=== PATIENT | female | born 1990 | race Two or more races ===

== ENCOUNTER 2024-07-22 12:46 | Emergency (ER) | payer MEDICAID, SELFPAY ==
[2024-07-22 12:48] VITALS: BMI 33.2
[2024-07-22 13:05] VITALS: BP 138/91; PULSE 105; RESP 18; TEMP 37.1; O2SAT 99
--- NOTE | 2024-07-22 13:27 | XR_ITS ---
Examination: Lumbar spine 3 views Technique one AP lateral coned lateral lower lumbar spine 3 views Date and time: July 22, 2024 1430 hours INDICATIONS: Patient fell pop in the lower back today followed by pain FINDINGS: Adequate alignment lumbar vertebral bodies No lumbar fracture Advanced disc narrowing L5-S1 No spondylolisthesis IMPRESSION: No lumbar fracture Advanced degenerative disc disease L5-S1
[2024-07-22] MEDS: CYCLObenzaPRINE 5 MG TABLET PO (13:33)
[2024-07-22] MEDS: HYDROcodone/APAP 5/325 TABLET 1 TAB PO (13:33)
[2024-07-22 13:44] LABS: Collection Type, Urine Clean Catch
--- NOTE | 2024-07-22 13:48 | PD.EDBACK ---
ED Back Injury Pain RME/HPI General Chief Complaint: Back Pain/Injury Stated Complaint: BACK PAIN 11/19; FELT POP IN LOWER BACK Time Seen by Provider: 07/22/24 12:53 Arrival date/time: 07/22/24 12:46 Limitations: no limitations RME / HPI RME / HPI Narrative: 33-year-old female with no reported past medical history presents for evaluation of low back pain x1 day. She describes it as sharp with radiation to her left gluteal region. She reports that she initially injured her left gluteal muscles while at the gym x 6 days ago and has been abstaining from exercise since that time. She states that today she was bending over to move a patient at work when she felt a pop in her low back. She reports intermittent tingling down her bilateral posterior thighs. She denies numbness, bladder and bowel incontinence, dysuria, hamturia, fever, rash, and weakness. She states she is unable to ambulate secondary to pain. Patient reports prior injury to her left pelvic region when she was a teenager. Patient reports that she has been taking naproxen and antispasmodics daily with some improvement in symptoms. 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 Associated symptoms: denies other symptoms Related Data Previous Rx's ?Medication ?Instructions ?Recorded cyclobenzaprine 10 mg tablet 10 mg PO TID PRN muscle spasm #30 07/22/24 tabs Allergies Allergy/AdvReac Type Severity Reaction Status Date / Time coconut Allergy Mild Dry Mucus Verified 07/22/24 12:51 Membranes Review of Systems Constitutional Constitutional: Denies body ache(s), Denies chills, Denies fever(s), Denies headache(s), Denies lethargy, Denies night sweats and Denies weakness Eyes Eyes: Denies blurry vision and Denies change in vision ENT Ears, Nose, Mouth, and Throat: Denies disequilibrium, Denies dizziness, Denies otalgia, Denies headache(s) and Denies neck pain Cardiovascular Cardiovascular: Denies chest pain, Denies irregular heart rhythm and Denies leg edema Respiratory Respiratory: Denies cough and Denies wheezing Gastrointestinal Gastrointestinal: Denies abdominal pain, Denies change in stool character, Denies fecal incontinence, Denies loose stools, Denies nausea and Denies vomiting Genitourinary Genitourinary: Denies dysuria, Denies flank pain, Denies hematuria and Denies urinary incontinence Musculoskeletal Musculoskeletal: Reports abnormal gait, Reports back pain, Denies joint swelling, Reports muscle cramps, Denies myalgias, Denies neck pain, Denies numbness, Denies radiating pain into limb, Denies stiffness and Denies tingling Integumentary/Breasts Skin/Breast: Denies new lesions, Denies rash and Denies wounds Neurologic Neurologic: Reports abnormal gait, Denies disequilibrium, Denies dizziness, Denies localized weakness, Denies headache(s), Denies numbness, Denies paresthesias, Denies radicular pain, Denies sensory deficit, Denies tingling and Denies weakness Allergic/Immunologic Allergic/Immunologic: Denies wheezing Past Medical History Social History SMOKING STATUS: Current some day smoker ED Exam General Limitations: Present no limitations General appearance: Present alert and other (Crying on examination, brought into room in wheelchair.) Head Head exam: Present atraumatic and normocephalic Eye Eye exam: Present normal appearance, PERRL and EOMI ENT ENT exam: Present normal exam, normal oropharynx, mucous membranes moist and TM's normal bilaterally Neck Neck exam: Present normal inspection and full ROM; Absent tenderness Chest Chest inspection: Present normal inspection and symmetric chest wall rise; Absent tenderness Respiratory Respiratory exam: Present normal lung sounds bilaterally; Absent respiratory distress or wheezes Cardiovascular Cardiovascular exam: Present tachycardia and +S1 Abdominal Exam Abdominal exam: Present soft; Absent distention or tenderness Rectal Exam Rectal exam: Present deferred Extremities Exam Extremities exam: Present full ROM and normal capillary refill; Absent tenderness or calf tenderness Back Exam Back exam: Present tenderness, muscle spasm (Mild muscle spasm palpated on left upper gluteal region.), paraspinal tenderness (Diffuse paraspinal lumbar tenderness to palpation.), sciatic notch tenderness (R), sciatic notch tenderness (L) and straight leg raise (L); Absent vertebral tenderness or straight leg raise (R) Neurological Exam Neurological exam: Present alert, oriented X3 and normal gait Expanded Neurological Exam Cerebellar function: Present normal gait and Romberg normal Motor strength - LUE: 5/5 Motor strength - RUE: 5/5 Motor strength - LLE: 5/5 Motor strength - RLE: 5/5 Psychiatric Psychiatric exam: Present anxious Skin Skin exam: Present warm, dry and normal color Course Quality Measures none Orders Category Date Time Status XR lumbar spine 2-3V Stat Exams 07/22/24 13:27 Completed HCG Qualitative,Urine Stat Lab 07/22/24 13:10 Completed UA, C/S IF [Urinalysis, C/S if Indicated] Stat Lab 07/22/24 13:10 Completed CYCLObenzaPRINE [Flexeril] Med 07/22/24 13:27 Discontinued 5 mg PO X1 ONE HYDROcodone*/APAP 5/325 [[place] 5/325] Med 07/22/24 13:27 Discontinued 1 tab PO X1 ONE Vital Signs Vital signs: Vital Signs Temperature 98.7 F 07/22/24 13:05 Pulse Rate 105 H 07/22/24 13:05 Respiratory Rate 18 07/22/24 13:05 Blood Pressure 138/91 H 07/22/24 13:05 Pulse Oximetry (%) 99 07/22/24 13:05 Oxygen Delivery Method Room Air 07/22/24 13:05 Pulse ox 99% on room air, within normal limits. Back Pain / Injury MDM Narrative MDM Narrative:: 33-year-old female presented for evaluation of back pain following an injury at work several days ago. 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 Vital signs significant for tachycardia, likely related to patient pain. Patient visibly uncomfortable on exam but no evidence of saddle paresthesia and clinical picture does not fit for cauda equina. MRI deferred at this time. X-ray showed moderate disc degeneration, likely chronic in nature. Less concern for pyelonephritis or nephrolithiasis given normal UA. Patient symptoms were improved in the department following [place] and antispasmodics. More likely muscle spasm. Ultimately patient was discharged home with plan to follow-up with primary care for possible outpatient MRI and physical therapy referral. Return precautions provided. Patient stable at time of discharge. Patient data External records reviewed:: [facility] previous records Clinical information provided by:: patient Social determinants that could affect healthcare access:: none Patient has the following chronic illnesses:: None reported. How is presenting disease/condition affected by chronic disease/condition?: no chronic disease Evaluation data The following diagnostics were reviewed and interpreted by me:: radiology exam(s) Lab and/or radiology exams considered but not ordered:: Considered not ordered. Interpretation Summary: Lumbar x-ray without acute fracture. IMPRESSION: No lumbar fracture Advanced degenerative disc disease L5-S1 hCG negative. UA without sign of infection or hematuria. Medications / Prescriptions Medications or Prescriptions considered but not ordered:: Rx given. Medication administrations:: Medication Administration History Discontinued Medications Hydrocodone Bitart/Acetaminophen (Hydrocodone/Apap 5/325 Tablet) 1 tab PO X1 ONE Stop: 07/22/24 13:28 Last Admin: 07/22/24 13:33 Dose: 1 tab Documented By: LYNETTE Cyclobenzaprine HCl (Cyclobenzaprine 5 Mg Tablet) 5 mg PO X1 ONE Stop: 07/22/24 13:28 Last Admin: 07/22/24 13:33 Dose: 5 mg Documented By: LYNETTE Rx given. Consultations Consultation(s) initiated? (list below): No Diagnosis Differential diagnosis back pain/injury: lumbar radiculopathy, sciatica, strain of lumbar region, renal colic, thoracic back pain and discitis Most likely diagnosis given after review of the tests above:: Strain of lumbar region. Admission Indicated Admission indicated?: not indicated Admission Request Was there a request for admission?: No Disposition Plan Disposition Plan: Discharge Discharge Attestation Discharge Attestation: The patient and all family members were given an opportunity to ask questions and understood the discharge instructions. Discharge instructions specifically effects, indications for sooner follow up or return to the emergency department, and the expected course of current diagnosis. Patient condition: Stable Discharge Plan Plan Patient Disposition: HOME (Self Care) Discharge Disposition comment: stable Prescriptions/Referrals Prescriptions/Med Rec: New cyclobenzaprine 10 mg tablet 10 mg PO TID PRN (Reason: muscle spasm) Qty: 30 0RF Referrals: No Primary/Family,Physician [Primary Care Provider] - In 1 week Problem List Clinical Impression: Strain of lumbar region, Degenerative disc disease at L5-S1 level Impression comment: Continue to rest and use heating pad for up to 15 minutes at a time up to 4 times daily on low back. Take muscle relaxer as needed every 8 hours. He may take Tylenol or ibuprofen as needed for low back pain every 6 hours. Follow-up with primary care within the next 3 to 4 days for further evaluation and possible physical therapy referral. Return to the ED if your symptoms worsen or change Patient/Caregiver Discharge Instructions Education Materials: Relieving Back Pain, Understanding Lumbosacral Strain Print Language: Taiwanese Stand Alone Forms: [place] Award Info., Work/School Release, Patient Portal Info Letter PA/SAND CUTTING MACHINE OPERATOR Supervising Physician PA/SAND CUTTING MACHINE OPERATOR Supervising Physician: Dr. Tran
[2024-07-22 14:00] LABS: Bacteria,Urine Rare; Bilirubin,Urine Negative (Negative); Blood,Urine Negative (Negative); Clarity,Urine Clear (Clear/Hazy); Color,Urine Colorless (Lt Yel-Yel); Culture Indicated,Urine Not Indicated; Glucose, Urine Negative (Negative); Ketones,Urine Negative (Negative); Leukocyte Esterase,Urine Negative (Negative); Nitrite,Urine Negative (Negative); Protein,Urine Negative (Neg - Trace); RBC,Urine 1 /hpf (0-3); Squamous Epithelial Cell,Urine 4 /hpf (0-5); Urobilinogen,Urine Negative mg/dL (0.0-1.0); WBC,Urine 1 /hpf (0-5)
[2024-07-22 14:07] LABS: HCG Qualitative,Urine Negative
== END 2024-07-22 16:20 | disposition home or self-care (01) ==
PROVIDERS: Physician Assistant; Emergency Provider Emergency Medicine
DX: S39.012A Strain of muscle, fascia and tendon of lower back, initial encounter (principal); X58.XXXA Exposure to other specified factors, initial encounter; M51.369 Other intervertebral disc degeneration, lumbar region without mention of lumbar back pain or lower extremity pain; M51.379 Other intervertebral disc degeneration, lumbosacral region without mention of lumbar back pain or lower extremity pain
CPT/HCPCS: 72100; 81001; 81025; 99283; A9270